=== PATIENT | female | born 1960 | race Caucasian/White ===

== ENCOUNTER 2018-04-07 14:02 | Emergency (ER) | payer BC ==
[~2018-04-07] VITALS: Ht 162.6 cm; Wt 77.4 kg
[~2018-04-07 14:02] MED LIST: ALPRAZOLAM0.25 M2 PO; ATIVAN0.5 MG PO; BUPROPION XL300 MG PO; CALAN SR,COVER120 MG PO; CALAN SR,COVER240 MG PO; CELEBREX200 MG PO; DAILY VALUE1 EACH PO; DILAUDID2 MG PO; HYDROCODON-ACE1 EAC9 PO; Imitrex PO; Levothroid,Synthroid PO; METHOCARBAMOL500 MG PO; Neurontin PO; SYNTHROID75 MCG PO; TUMS500 MG PO; VENLAFAXINE HC150 M1 PO; Vicodin,Norco 5/325 PO; Vitamin D, Drisdol PO
[2018-04-07 14:34] LABS: BASOPHIL (%) 0.4 % (0-1); EOSINOPHIL (%) 0.3 % (0-5); HEMATOCRIT 44.3 % (36.0-46.0); HEMOGLOBIN 14.8 G/DL (11.9-15.5); IMMATURE GRANULOCYTE (%) 0.4 % (0.0-0.7); LYMPHOCYTE (%) 18.3 % (15-42); LYMPHOCYTE COUNT 1.8 K/uL (1.0-2.8); MCH 30.6 PG (29.0-34.0); MCHC 33.4 G/DL (30.0-36.0); MCV 91.7 FL (83-99); MONOCYTE (%) 8.9 % (3-12); MONOCYTE COUNT 0.9 K/uL (0-0.8); NEUTROPHIL (%) 71.7 % (45-76); NEUTROPHIL COUNT 7.2 K/uL (1.8-6.4); PLATELET COUNT 297 K/uL (156-360); RBC DIS.WIDTH-CV 13.3 % (11.8-14.6); RBC DIS.WIDTH-SD 45.5 % (39-53); RED BLOOD COUNT 4.83 M/uL (3.80-5.20); WHITE BLOOD COUNT 10.1 K/uL (4.1-10.2)
[2018-04-07 14:40] LABS: INTER. NORMALIZED RATIO 1.1
[2018-04-07 14:42] LABS: CHLORIDE 102 mEq/L (99-109); POTASSIUM 3.7 mEq/L (3.7-5.4); SODIUM 141 mEq/L (136-147)
[2018-04-07 14:43] LABS: PTT 28.6 SEC (25-37)
[2018-04-07 14:44] LABS: GLUCOSE 103 mg/dL (70-99)
[2018-04-07 14:48] LABS: CREATININE 0.8 mg/dL (0.6-1.3); GFR ESTIMATE (CALCULATED) > 59 mL/min/
[2018-04-07 14:49] LABS: UREA NITROGEN (BUN) 14 mg/dL (9-23)
[2018-04-07 14:56] LABS: TROP-I INTERPRETATION NEGATIVE; TROPONIN-I < 0.01 ng/mL (0.0-0.30)
[2018-04-07 15:23] LABS: HDL CHOLESTEROL 82 MG/DL (Desirable>=50); LDL CHOLESTEROL 103 mg/dL (Desirable<100); NON-HDL CHOLESTEROL 116 mg/dL (Desirable<160); TOTAL CHOLESTEROL 198 mg/dL (Desirable<200); TRIGLYCERIDES 67 MG/DL (Normal: <150)
[2018-04-07 15:52] LABS: APPEARANCE CLOUDY ((CLEAR)); BILIRUBIN NEGATIVE; BLOOD NEGATIVE; COLOR YELLOW ((YELLOW)); GLUCOSE (STRIP) NEGATIVE; KETONES 5; LEUKOCYTES NEGATIVE; NITRITE NEGATIVE; PROTEIN (STRIP) NEGATIVE; SPECIFIC GRAVITY 1.025 (1.000-1.030)
[2018-04-07 16:03] LABS: AMPHETAMINE NEGATIVE (500 ng/mL); BARBITURATES NEGATIVE (200 ng/mL); BENZODIAZEPINES PRESUMPTIVE POSITIVE (150 ng/mL); BUPRENORPHINE PRESUMPTIVE POSITIVE (10 ng/mL); COCAINE NEGATIVE (150 ng/mL); METHADONE NEGATIVE (200 ng/mL); METHAMPHETAMINE NEGATIVE (500 ng/mL); OPIATES (MORPHINE) PRESUMPTIVE POSITIVE (100 ng/mL); OXYCODONE NEGATIVE (100 ng/mL); PHENCYCLIDINE NEGATIVE (25 ng/mL); PROPOXYPHENE NEGATIVE (300 ng/mL); THC CANNABINOIDS NEGATIVE (50 ng/mL); TRICYCLIC ANTIDEPRESSANTS NEGATIVE (300 ng/mL)
[2018-04-07 16:09] LABS: BACTERIA 1+ /HPF; EPITHELIAL CELLS RARE /HPF; MUCUS NONE SEEN /LPF; RED BLOOD CELLS 0-5 /HPF (0-5); UCUL ADDED? NO; WHITE BLOOD CELLS 0-5 /HPF (0-5)
[2018-04-07 16:35] LABS: BENZODIAZEPINES, URINE SCREEN Negative (200 ng/mL)
[2018-04-07 17:25] LABS: ERTH.SED.RATE 36 MM/HR (0-30)
[2018-04-07 17:53] LABS: THYROTROPIN (TSH) 0.18 MIU/L (0.4-5.5)
[2018-04-07 17:57] LABS: C-REACTIVE PROTEIN < 1.0 MG/L (0-10)
[2018-04-07 18:57] VITALS: BP 103/56
[2018-04-09 09:27] LABS: HEMOGLOBIN A1c (GLYCOHEMOGLOB) 5.1 % (Below 5.7)
== END 2018-04-07 18:59 | disposition home or self-care (01) ==
LOC: EME 14:02
PROVIDERS: Physician Assistant
DX: R51 Headache (principal); R20.2 Paresthesia of skin; R79.89 Other specified abnormal findings of blood chemistry; M79.7 Fibromyalgia; K21.9 Gastro-esophageal reflux disease without esophagitis; F41.9 Anxiety disorder, unspecified; F32.9 Major depressive disorder, single episode, unspecified; Z87.891 Personal history of nicotine dependence; Z90.710 Acquired absence of both cervix and uterus; Z88.2 Allergy status to sulfonamides
CPT/HCPCS: 70450; 80048; 80061; 81003; 82948; 83036; 84443; 84484; 84999; 85025; 85610; 85651; 85730; 86140; 93005; 99281; 99283